=== PATIENT | female | born 1965 | race American Indian/Alaskan Native ===

== ENCOUNTER → 2016-05-14 | Outpatient (CLI) | payer BC, OTHER ==
[~2016-05-14] MED LIST: CIPR500T4 PO; HYDR-3730 PO; HYDR-3816 PO; HYDR-3874 PO; HYDR-3875 PO; NITR-65 PO; NITR-68 PO; TAMS0.4C98 PO
--- OUTSIDE RECORDS SUMMARY | 2016-05-14 09:35 | XMS REPORT | Continuity of Care Document ---
Author Author [facility] Organization [facility] Address Unknown Phone Unavailable Care Team Providers Care Cylinder Inspector And Tester Name Role Phone ANN SPEARS MD PCP Insurance Providers Payer Name Policy Number Subscriber Name Relationship [facility] [id number] Marc Bonner 18 Self / Same As Patient [facility] [id number] ManasMarc 18 Self / Same As Patient Advance Directives Directive Response Recorded Date/Time Advance Directives No 03/02/16 6:55am Health Care Power of Park Warden No 03/02/16 6:55am Organ Donor Yes 03/02/16 6:55am Problems Active Problems Medical Problem Onset Date Status Left nephrolithiasis Unknown Acute Left ureteral stone Unknown Acute Nausea & vomiting Unknown Acute Medications Current Home Medications Medication Dose Units Route Directions Days/Qty Instructions Start Date Tamsulosin Hcl 0.4 Mg 0.4 Mg Oral Daily 30 02/04/16 Nitrofurantoin Monohyd/M-Cryst 100 Mg 1 Tab Oral Twice A Day With Meals 14 03/02/16 Hydrocodone/Acetaminophen 1 Each 1-2 Each Oral Every 4HRS as needed for Pain 20 03/02/16 Past Home Medications Medication Directions Ordered Status Hydrocodone/Acetaminophen 1 Each Tablet, 1-2 Each Oral Every 6 Hours Discontinued Hydrocodone/Acetaminophen 1 Each Tablet, 1 Tab Oral Every 4HRS as needed for Pain 05/28/15 Discontinued Ciprofloxacin Hcl 500 Mg Tablet, 500 Mg Oral Twice A Day 10/14/15 Discontinued Hydrocodone/Acetaminophen 1 Each Tablet, 1 Each Oral Every 6 Hours 10/14/15 Discontinued Nitrofurantoin Monohyd/M-Cryst 100 Mg Capsule, 1 Tab Oral Twice A Day Discontinued Hydrocodone/Acetaminophen 1 Each Tablet, 1-2 Each Oral As Directed 02/04/16 Discontinued Nitrofurantoin Macrocrystal 100 Mg Capsule, 100 Mg Oral Twice A Day With Meals 02/18/16 Discontinued Hydrocodone/Acetaminophen 1 Each Tablet, 1-2 Each Oral Every 4HRS for Pain Discontinued Social History Social History Problem Response Recorded Date/Time Alcohol Use Denies Use 10/14/2015 8:23am Recreational Drug Use No 10/14/2015 8:23am Recent Foreign Travel No 03/12/2016 12:47pm Sexually Transmitted Disease No 03/02/2016 6:55am HIV/AIDS No 03/02/2016 6:55am Do you dip or chew tobacco? No 10/14/2015 8:23am Recent Hopitalizations No 03/02/2016 6:55am Sexually Transmitted Disease No 03/02/2016 6:55am Hospital Discharge Instructions No hospital discharge instructions. Plan of Care Prescriptions See Medication Section Functional Status No functional status results. Allergies, Adverse Reactions, Alerts Allergen Type Severity Reaction Status Last Updated Penicillins ([id number]) Allergy Intermediate RASH/BREATHING TROUBLE Active 05/27/15 Metoclopramide Allergy Severe THROAT CLOSED Active 05/27/15 Immunizations No immunization records. Vital Signs No known vital signs results. Results Laboratory Results Test Name Result Units Flags Reference Collection Date/Time Result Date/ Time Comments Sodium Level 141 MMOL/L 135-145 03/12/2016 1:03pm 03/12/2016 1:31pm Potassium Level 4.0 MMOL/L 3.6-5.0 03/12/2016 1:03pm 03/12/2016 1:31pm Chloride Level 107 MMOL/L 98-107 03/12/2016 1:03pm 03/12/2016 1:31pm Carbon Dioxide Level 23 MMOL/L 21-32 03/12/2016 1:03pm 03/12/2016 1: 31pm Anion Gap 11 MMOL/L 5-14 03/12/2016 1:03pm 03/12/2016 1:31pm Blood Urea Nitrogen 9 MG/DL 7-18 03/12/2016 1:03pm 03/12/2016 1:31pm Creatinine 0.76 MG/DL 0.60-1.30 03/12/2016 1:03pm 03/12/2016 1:31pm BUN/Creatinine Ratio 12 03/12/2016 1:03pm 03/12/2016 1:31pm Estimat Glomerular Filtration Rate > 60 03/12/2016 1:03pm 2015 1:31pm GFR INTERPRETIVE DATA UNITS FOR ESTIMATED GFR (eGFR): mL/min/1.73 M2 REFERENCE RANGE FOR ESTIMATED GFR (eGFR) eGFR NORMAL eGFR >60 MODERATELY DECREASED eGFR 30-59 SEVERLY DECREASED eGFR 15-29 KIDNEY FAILURE <15 (OR DIALYSIS) Glucose Level 86 MG/DL 70-105 03/12/2016 1:03pm 03/12/2016 1:31pm Uric Acid 6.9 MG/DL 2.6-7.2 03/12/2016 1:03pm 03/12/2016 1:31pm Calcium Level 9.4 MG/DL 8.5-10.1 03/12/2016 1:03pm 03/12/2016 1:31pm Phosphorus Level 3.5 MG/DL 2.3-4.7 03/12/2016 1:03pm 03/12/2016 1:31pm Calcium (PTH Intact) 9.4 mg/dL 8.5-10.5 03/12/2016 1:03pm 03/14/2016 3: 19pm The Interpretation for the PTH Intact and Calcium PTH results can be found online at: www.[employer]/interp Enter test number: [id number]. Test performed at [facility], CLIA# [id number] [address] [place] [address] Parathyroid Hormone (Intact) 37 pg/mL 10-65 03/12/2016 1:03pm 2015 3:19pm Test performed at [facility], CLIA# [id number] [address] [place] [address] Procedures No known history of procedures. Encounters Encounter Location Arrival/Admit Date Discharge/Depart Date Attending Provider Discharged Recurring [facility] 04/05/16 9:35am 9:36am ROSENDO BECKER MD
--- NOTE | 2016-05-14 10:52 | Diagnostic Imaging Report ---
PROCEDURE: MRI right joint upper extremity without contrast. TECHNIQUE: Multiplanar, multisequence non contrast-enhanced MRI of the right upper extremity was accomplished. INDICATION: Right shoulder pain. FINDINGS: There is no os acromiale or Hill-Sachs deformity. The acromioclavicular joint demonstrates osteoarthritic change with mild inferior osteophytes and capsular hypertrophy that has a mild impression upon the underlying myotendinous junction of the supraspinatus. There is a full-thickness tear in the supraspinatus distal tendon. The tear is located at about 1 cm from the insertion point of the tendon. There is a full-thickness tear at the insertion point as well in the most anterior fibers of the supraspinatus. The infraspinatus demonstrates tendinosis and partial undersurface tear. The subscapular tendon demonstrates thickening and increased signal suggestive of tendinosis. There is a longitudinal increased signal within the proximal tendon of the long head of the biceps suggestive of a nondisplaced longitudinal split tear. There is also abnormal signal in the adjacent portion of the labrum suggestive of a SLAP tear. There is mild bone marrow edema in the superior aspect of the humeral head, could be reactive or related to mild contusion. There is a small joint effusion and small amount of fluid in the subacromial subdeltoid bursa. There is no significant atrophy within the rotator cuff muscles or the deltoid muscle. IMPRESSION: 1. Full-thickness tear in the supraspinatus. Tendinosis in the infraspinatus and subscapularis. 2. 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 3. Nondisplaced tears in the superior segment of the labrum and the proximal long head biceps tendon. Dictated by: Dictated on workstation # [id number]
== END ==
LOC: RAD 09:32
PROVIDERS: ATTEND Nurse Practitioner
DX: M75.41 Impingement syndrome of right shoulder (principal); M24.111 Other articular cartilage disorders, right shoulder; M19.011 Primary osteoarthritis, right shoulder
CPT/HCPCS: 73221

== ENCOUNTER → 2017-01-31 | Outpatient (CLI) | payer BC, OTHER ==
--- NOTE | 2017-01-31 13:47 | Diagnostic Imaging Report ---
INDICATION: Status post ESWL. COMPARISON: 03/12/2016. FINDINGS: Single frontal radiographic view of the abdomen was obtained. Extraosseous calcification is seen projecting over the inferior pole of the left kidney. Overall, burden appears improved when compared to 03/12/2016. Multiple extraosseous calcifications are also identified projecting over the bilateral lower pelvis. These may represent phleboliths, although distal ureter calculi cannot be excluded. No unexpected radiopaque foreign bodies are seen. Small bowel loops are nondistended. Bony structures show no gross acute abnormalities. IMPRESSION: 1. Probable interval decreased burden of left-sided nephrolithiasis. 2. Distal ureteral calculi and/or bilateral phleboliths. Dictated by: Dictated on workstation # [id number]
== END ==
LOC: RAD 13:05
PROVIDERS: ATTEND Urology
DX: N20.2 Calculus of kidney with calculus of ureter (principal)
CPT/HCPCS: 74000

== ENCOUNTER → 2018-08-16 | Outpatient (CLI) | payer BC, OTHER ==
[~2018-08-16] MED LIST changes: +HYDR-34 PO; -HYDR-3816 PO; +HYDR-3870 PO; -HYDR-3874 PO
--- NOTE | 2018-08-16 09:03 | Diagnostic Imaging Report ---
PROCEDURE: MRI lumbar spine. TECHNIQUE: Multiplanar, multisequence MRI of the lumbar spine was performed without contrast. INDICATION: Low back pain. FINDINGS: The alignment of the lumbar spine is normal. The vertebral body heights are well-maintained. There is no spondylolysis or spondylolisthesis. No fractures are identified. Marrow signal intensity is somewhat heterogeneous. Conus medullaris is seen at L1 is normal in appearance. T12-L1 disc is unremarkable. L1-L2 disc is unremarkable. At L2-L3, the disc is normal in height, signal intensity and morphology. There is some facet disease. At L3-L4, there is slight loss of disc height and signal density with some minimal annular bulging. There is slight effacement of ventral thecal sac. There is also some mild facet disease. At L4-L5, there is loss of disc height and signal intensity. There is a left paramedian disc extrusion. Disc fragment is sequestered below the level of disc just to the left of midline. This results in effacement of ventral thecal sac and encroachment on left lateral recess and exiting left nerve root. There is moderate left and mild right neural foraminal encroachment. At L5-S1, there is mild facet disease. The abdominal aorta is nonaneurysmal. Gait is normal in appearance. IMPRESSION: Focal disc extrusion with sequestration at L4-L5 as detailed above. Dictated by: Dictated on workstation # [id number]
== END ==
LOC: RAD 07:53
PROVIDERS: ATTEND Nurse Practitioner
DX: M51.17 Intervertebral disc disorders with radiculopathy, lumbosacral region (principal)
CPT/HCPCS: 72148